=== PATIENT | female | born 1975 | race Caucasian/White ===

== ENCOUNTER 2018-08-15 21:07 | Emergency (ER) | payer BC, MEDICAID, OTHER ==
[~2018-08-15] VITALS: Ht 172.7 cm; Wt 97.0 kg
--- NOTE | 2018-08-15 21:12 | NUR ---
PT CHANGED INTO GOWN AND ONE BAG OF BELONGINGS SECURED IN THE LOCKER.
[2018-08-15 21:22] VITALS: BP 147/97
--- NOTE | 2018-08-15 21:29 | NUR ---
BRUCE. REPORT RECEIVED FROM EMS. +ETOH. PT C/O ANXIETY/PANIC ATTACK. NO SI/HI HERE. PT'S AOX4. RESPS EVEN AND UNLABORED. EDMD AT BEDSIDE TO EVALUATE AT THIS TIME. PT DENIES ANY SYMPTOMS/PAIN AT THIS TIME.
--- NOTE | 2018-08-15 21:38 | NUR ---
PT AMB TO BR AND BACK TO ROOM WITH STEADY GAIT. UA SENT.
[2018-08-15 21:40] LABS: BASOPHILS # (AUTO) 0.03 x10^3/uL (0-0.1); BASOPHILS % (AUTO) 0 % (0-1); EOSINOPHILS # (AUTO) 0.12 x10^3/uL (0-0.4); EOSINOPHILS % (AUTO) 1 % (1-7); LYMPHOCYTES # (AUTO) 1.89 x10^3/uL (1-3.4); LYMPHOCYTES % (AUTO) 15 % (22-44); MD NO; MEAN CORPUSCULAR HEMOGLOBIN 31.5 pg (27.0-34.8); MEAN CORPUSCULAR VOLUME 95.3 fL (80-100); MEAN PLATELET VOLUME 7.5 fL (7.4-10.4); MONOCYTES # (AUTO) 0.79 x10^3/uL (0.2-0.8); MONOCYTES % (AUTO) 6 % (2-9); NEUTROPHILS # (AUTO) 10.13 x10^3/uL (1.8-6.8); NEUTROPHILS % (AUTO) 78 % (42-75); PLATELET COUNT 341 x10^3/uL (130-400); RED BLOOD COUNT 4.14 x10^6/uL (3.82-5.3)
[2018-08-15 21:53] LABS: ALBUMIN 4.2 g/dL (3.4-5.0); ANION GAP 8 mmol/L (5-15); CALCIUM 8.9 mg/dL (8.5-10.1); CHLORIDE 115 mmol/L (98-107)
[2018-08-15 21:55] LABS: AMPHETAMINE SCREEN, URINE Negative (Negative); BARBITURATE SCREEN, URINE Negative (Negative); BENZODIAZEPINE SCREEN, URINE Negative (Negative); CANNABINOID SCREEN, URINE Negative (Negative); COCAINE SCREEN, URINE Negative (Negative); METHADONE SCREEN, URINE Negative (Negative); OPIATE SCREEN, URINE Negative (Negative)
[2018-08-15 21:56] LABS: ALANINE AMINOTRANSFERASE 34 U/L (12-78); ALKALINE PHOSPHATASE 62 U/L (45-117); BILIRUBIN,TOTAL 0.9 mg/dL (0.2-1.0); CREATININE 1.17 mg/dL (0.55-1.02); SALICYLATE LEVEL 7.9 mg/dL (2.8-20.0); TOTAL PROTEIN 6.9 g/dL (6.4-8.2)
--- NOTE | 2018-08-15 23:00 | NUR ---
PT GIVEN DC INSTRUCTIONS. PT'S AOX4. RESPS EVEN AND UNLABORED. PT AMB TO DC WITH STEADY GAIT. NO ACUTE DISTRESS AT DC.
== END 2018-08-15 23:01 | disposition home or self-care (01) ==
LOC: ED 22:28
DX: F41.1 Generalized anxiety disorder (principal); F32.0 Major depressive disorder, single episode, mild; R06.4 Hyperventilation; Z72.9 Problem related to lifestyle, unspecified; I10 Essential (primary) hypertension; F10.120 Alcohol abuse with intoxication, uncomplicated
CPT/HCPCS: 36415; 80053; 80307; 85025; 96374